=== PATIENT | female | born 1990 | race Hispanic/Latino ===

== ENCOUNTER 2023-07-14 19:13 | Emergency (ER) | payer OTHER, SELFPAY ==
[2023-07-14 19:28] VITALS: BP 92/63; PULSE 98; RESP 20; TEMP 37.1; O2SAT 100
--- NOTE | 2023-07-14 19:32 | ED.FEMALEGU ---
HPI - Female Genitourinary General Chief complaint: Urogenital-Female Stated complaint: SOB/Vaginal Problems Time Seen by Provider: 07/14/23 19:15 Source: patient Mode of arrival: ambulatory Limitations: no limitations History of Present Illness HPI Narrative: Patient is a 32-year-old female who presents with vaginal discharge and irritation. Patient states she used a 7 day Monistat last week and symptoms resolved. Since then patient has still been using vaginal still and is having increased irritation and burning. Patient also reports return of white thick discharge. Denies any concern for STD. MD elicited complaint: dysuria Related Data Allergies Allergy/AdvReac Type Severity Reaction Status Date / Time No Known Allergies Allergy Verified 07/14/23 19:15 Review of Systems Review of Systems: All systems reviewed & are unremarkable except as noted in HPI and below Constitutional: Constitutional: Denies chills, Denies fever(s), Denies headache(s), Denies malaise and Denies weakness Eyes: Eyes: Denies change in vision, Denies eye discharge and Denies irritation ENT: Denies otalgia, Denies headache(s), Denies nasal congestion, Denies nasal discharge, Denies sinus pain and Denies sore throat Cardiovascular: Cardiovascular: Denies chest pain, Denies edema, Denies palpitations and Denies dyspnea Respiratory: Respiratory: Denies cough and Denies dyspnea Gastrointestinal: Gastrointestinal: Denies abdominal pain, Denies diarrhea, Denies nausea and Denies vomiting Genitourinary: Genitourinary: Denies hematuria, Denies dysuria, Denies flank pain, Denies urinary urgency, Reports vaginal discharge and Reports vaginal pruritus Musculoskeletal: Musculoskeletal: Denies back pain and Denies numbness Integumentary/Breasts: Skin/Breast: Denies pruritus and Denies rash Neurologic: Denies headache(s), Denies numbness and Denies weakness Psychiatric: Psychiatric: Reports no additional psychiatric complaints Endocrine: Endocrine: Denies palpitations PMFSH Comments At time of signature, agree with nursing past medical, surgical, social and family history. There is no relevant family history pertinent to the presenting complaint. Exam Const: General: cooperative, healthy appearing, comfortable, no acute distress and well nourished Nutritional Appearance: well nourished Orientation/consciousness: patient oriented x3 HENMT: Head: normocephalic and atraumatic Ears: external ears normal Face/Nose/Sinus: Normal external nose present, Normal nares present and normal facial exam Face and sinus: normal facial exam Eyes: General: appearance normal, both eyes and all related structures Pupils: Equal, round and reactive pupils present EOM: EOMs intact bilaterally Neck: Neck: normal visual inspection, full ROM and supple Chest: Chest palpation & inspection: normal inspection of the chest Resp: Effort & Inspection: normal respiratory effort and able to speak in complete sentences Cardio: Rate: regular rate Rhythm: regular rhythm GI: Inspection: normal to inspection GI Palp: No abdominal tenderness and Yes Soft to palpation : General: Yes no CVA tenderness Other: Vaginal exam deferred Back/Spine/Pelvis: Back: no CVA tenderness Skin: General skin exam: normal color and no rashes or lesions noted Neuro: General: patient oriented x3 and moves all extremities Cranial nerves: Yes Equal, round and reactive pupils present Extrem: General: normal to inspection and full ROM Psych: Appearance: grossly normal and well kempt Course Course Emergency Course: Patient is aware of diagnosis, understands and agrees to treatment plan. Anticipatory guidance given. Patient agrees to follow-up as directed and is aware of reasons to seek care at the emergency department. Portions of this record may have been created with voice recognition software Level of Care: Express Care Visit Vital Signs Vital signs: Vital Signs Temperature
== END 2023-07-14 20:10 | disposition home or self-care (01) ==
PROVIDERS: Emergency Provider Nurse Practitioner Family; PCP Registered Nurse
DX: B37.31 Acute candidiasis of vulva and vagina (principal)
CPT/HCPCS: 81003; 81025; 87086; 87088; 87106; 99213; G0463

== ENCOUNTER 2023-07-28 18:53 | Emergency (ER) | payer OTHER, SELFPAY ==
[2023-07-28 19:08] VITALS: BP 127/59; PULSE 96; RESP 20; TEMP 36.6; O2SAT 99
--- NOTE | 2023-07-28 19:20 | ED.FEMALEGU ---
HPI - Female Genitourinary General Chief complaint: Urogenital-Female Stated complaint: Vaginal Problems Time Seen by Provider: 07/28/23 18:56 Source: patient Mode of arrival: ambulatory Limitations: no limitations History of Present Illness HPI Narrative: Nataly is a 32-year-old female patient presenting to clinic today with complaints of vaginal discharge, irritation, and swelling. Was seen in the clinic 2 weeks ago for similar symptoms and given Diflucan. Urine showed Malika in the urine. States that the Diflucan did not seem to help. Also has tried Monistat for 1 week prior to this. States she also has some pain with urination starting yesterday. Denies any concern for any sexually transmitted infections. Denies fever or chills. Denies abdominal pain or flank pain. Took azo yesterday. Related Data Allergies Allergy/AdvReac Type Severity Reaction Status Date / Time No Known Allergies Allergy Verified 07/28/23 18:59 Review of Systems Review of Systems: Pertinent positives per HPI. Patient denies any fever, chills, rash, headache, visual changes, dizziness, cough, runny nose, sore throat, shortness of breath, chest pain, palpitations, nausea, vomiting, diarrhea, constipation, abdominal pain. PMFSH Comments At the time of my signature, I reviewed and agree with the nursing past medical, surgical, social, and family history. There is no relevant family history pertinent to the patient complaint. Exam Narrative: General: Well-developed, morbidly obese, in no apparent distress Head: Normocephalic, atraumatic. Cardio: Regular rate and rhythm, s1 and s2 normal, no murmur appreciated. Resp: Clear to auscultation bilaterally, no rhonchi, rales, wheezing or rubs. Abdomen: Soft, pliable, bowel sounds present in all quadrants, non-tender to palpation, no CVAT tenderness. : Pelvic exam performed with (Yakelin MENDOSA) at bedside. Verbal consent obtained from patient. Normal external female genitalia without lesions or masses, Urinary meatus: patent without discharge, Vagina: No lesions, masses, green vaginal discharge in the pelvic vault, Cervix: pink without mass, lesions, green discharge around the cervix, no tenderness Adnexa: without palpable mass or tenderness. Course Course Emergency Course: Portions of this record may have been created with voice recognition software. Level of Care: Express Care Visit Vital Signs Vital signs: Vital Signs Temperature 36.6 C 07/28/23 19:08 Pulse Rate 96 07/28/23 19:08 Respiratory Rate 20 07/28/23 19:08 Blood Pressure 127/59 L 07/28/23 19:08 Pulse Oximetry 99 07/28/23 19:08 Oxygen Delivery Room Air 07/28/23 19:08 Temperature 36.6 C 07/28/23 19:08 Pulse Rate 96 07/28/23 19:08 Respiratory Rate 20 07/28/23 19:08 Blood Pressure 127/59 L 07/28/23 19:08 Pulse Oximetry 99 07/28/23 19:08 Oxygen Delivery Room Air 07/28/23 19:08 Vital signs reviewed MDM - Female Genitourinary MDM Narrative Medical decision making narrative: At the time of visit patient is resting comfortably on the exam table. Patient appears to be nontoxic. Vaginal exam was performed green discharge was noted in the pelvic vault. Prescription will send for Flagyl and Diflucan. Urine was skewed due to azo so we will send for culture. Supportive measures were discussed with the patient and they voiced understanding discharge instructions and agrees to treatment plan. Return precautions reviewed Differential Diagnosis Differential diagnosis: Likely urinary tract infection, bacterial vaginosis, trichomoniasis, cervicitis, vaginitis, cystitis and other (sti) Lab Data Labs: Urine Glucose 2+ Reference Range: Negative Urine Bilirubin Negative Reference Range: Negative Urine Ketone 1+
[2023-07-29 19:43] LABS: Trichomonas Vag PCR NOT DETECTED (NOT DETECTE)
[2023-07-29 20:11] LABS: Chlamydia trachomatis NOT DETECTED (NOT DETECTE); Neisseria gonorrhoeae PCR NOT DETECTED (NOT DETECTE)
== END 2023-07-28 19:40 | disposition home or self-care (01) ==
PROVIDERS: Emergency Provider Nurse Practitioner Family; PCP Registered Nurse
DX: N89.8 Other specified noninflammatory disorders of vagina (principal); R30.0 Dysuria
CPT/HCPCS: 81003; 87070; 87086; 87491; 87591; 87661; 99213; G0463